=== PATIENT | female | born 1975 | race Two or more races ===

== ENCOUNTER 2017-01-31 13:59 | Emergency (ER) | payer MEDICAID ==
[~2017-01-31] VITALS: Ht 152.4 cm; Wt 61.3 kg
[2017-01-31 15:24] LABS: BASOPHIL % 0 % (0-2); PLATELET COUNT 410 x10^3mcL (130-400)
[2017-01-31 15:34] LABS: CALCIUM 9.1 mg/dL (8.5-10.1); CARBON DIOXIDE 24.2 mmol/L (21-32); CHLORIDE SERUM 101 mmol/L (98-107); CREATININE SERUM 0.8 mg/dL (0.6-1.0); GFR1 > 60 mL/min; GLUCOSE SERUM 117 mg/dL (74-106); POTASSIUM SERUM 3.4 mmol/L (3.5-5.1); SODIUM SERUM 136 mmol/L (136-145)
[2017-01-31 15:39] LABS: ALBUMIN 3.7 g/dL (3.4-5.0); ALKALINE PHOSPHATASE 70 U/L (46-116); ALT/SGPT 34 U/L (14-59); AST/SGOT 25 U/L (15-37); BILIRUBIN TOTAL 0.4 mg/dL (0.20-1.00); LIPASE 98 IU/L (73-393); TOTAL PROTEIN, SERUM 8.2 g/dL (6.4-8.2)
[2017-01-31 16:06] VITALS: BP 95/53
== END 2017-01-31 16:13 | disposition home or self-care (01) ==
LOC: ED 13:59
PROVIDERS: Emergency Medicine
DX: N39.0 Urinary tract infection, site not specified (principal); R19.7 Diarrhea, unspecified; E03.9 Hypothyroidism, unspecified; Z79.899 Other long term (current) drug therapy; Z98.890 Other specified postprocedural states
CPT/HCPCS: J1885; J7030